=== PATIENT | male | born 1985 | race African-American/Black ===

== ENCOUNTER 2023-09-05 14:40 | Emergency (ER) | payer MEDICAID ==
[~2023-09-05] VITALS: Ht 177.8 cm; Wt 78.0 kg
[2023-09-05 14:50] VITALS: BP 136/94
[2023-09-05] MEDS ORDERED: KENALOG15 GM/TUBE EX (14:58)
[2023-09-05] MEDS ORDERED: MEDDOSEPAK PO (14:58)
[2023-09-05 15:00] VITALS: BP 136/91
[2023-09-05 15:15] VITALS: BP 142/93
== END 2023-09-05 15:12 | disposition home or self-care (01) ==
LOC: ED 14:40
DX: L30.9 Dermatitis, unspecified (principal)